=== PATIENT | female | born 2000 | race Caucasian/White ===

== ENCOUNTER 2023-12-05 19:28 | Emergency (ER) | payer OTHER ==
[2023-12-05 19:38] VITALS: BMI 35.6
[2023-12-05] MEDS ORDERED: FAMOTIDINE 20 MG TABLET ONE (20:26)
[2023-12-05] MEDS ORDERED: ONDANSETRON *ODT* 4 MG TABLET ONE (20:26)
[2023-12-05] MEDS: ONDANSETRON *ODT* 4 MG TABLET SL ONE (20:35)
[2023-12-05] MEDS: FAMOTIDINE 10 MG TABLET PO ONE (20:35)
[2023-12-05] MEDS ORDERED: FAMOTIDINE 20 MG/50 ML IVPB 20 MG/50 ML MG IVPB ONE (21:32)
[2023-12-05] MEDS ORDERED: ONDANSETRON 4 MG/2 ML VIAL ONE (21:32)
[2023-12-05] MEDS ORDERED: MAG HYDROX/AL HYDROX/SIMETH 30 ML UNIT-DOSE CUP ONE (21:32)
[2023-12-05] MEDS: FAMOTIDINE 20 MG/50 ML IVPB 20 MG/50 ML MG IVPB ONE (21:53)
[2023-12-05] MEDS: MAG HYDROX/AL HYDROX/SIMETH 30 ML UNIT-DOSE CUP PO ONE (21:53)
[2023-12-05] MEDS: ONDANSETRON 4 MG/2 ML VIAL IVPUSH ONE (21:53)
[2023-12-05 22:03] LABS: BASO % 0.7 % (0-2.0); EOS % 0.2 % (0-4.5); HEMATOCRIT 37.9 % (32.4-45.2); HEMOGLOBIN 11.9 GM/dL (10.7-15.3); LYMPH % 41.4 % (8-40); MCH 21.7 pg (25.7-33.7); MCHC 31.5 g/dl (32.0-36.0); MEAN CELL VOLUME 68.9 fl (80-96); MEAN PLT VOLUME 8.1 fl (7.5-11.1); MONO % 8.5 % (3.8-10.2); NEUT % 49.2 % (42.8-82.8); PLATELET COUNT 256 10^3/uL (134-434); RDW 18.5 % (11.6-15.6); WHITE BLOOD COUNT 4.2 K/mm3 (4.0-10.0)
[2023-12-05 22:24] LABS: ANISOCYTOSIS 0; MACROCYTOSIS 0
[2023-12-05 22:26] LABS: POTASSIUM 3.8 mmol/L (3.5-5.1)
[2023-12-05 22:28] LABS: CALCIUM 9.5 mg/dL (8.5-10.1)
[2023-12-05 22:29] LABS: ALBUMIN 3.8 g/dl (3.4-5.0); BLOOD UREA NITROGEN 7.7 mg/dL (7-18)
[2023-12-05 22:32] LABS: CREATININE 0.7 mg/dL (0.55-1.3)
[2023-12-05 22:34] LABS: BILIRUBIN,TOTAL 1.5 mg/dL (0.2-1); TOT PROT 8.3 g/dl (6.4-8.2)
[2023-12-05] MEDS ORDERED: KETOROLAC TROMETHAMINE 30 MG/1 ML VIAL ONE (23:10)
[2023-12-05] MEDS ORDERED: DEXAMETHASONE SOD PHOSPHATE 10 MG/1 ML VIAL ONE (23:13)
[2023-12-05] MEDS: SODIUM CHLORIDE 0.9% 500 ML INFUS.BAG IV ONE (23:15)
[2023-12-05 23:20] VITALS: BP 132/75; PULSE 89; RESP 18; TEMP 98.2
[2023-12-05] MEDS: KETOROLAC TROMETHAMINE 30 MG/1 ML VIAL IVPUSH ONE (23:23)
[2023-12-05] MEDS: DEXAMETHASONE SOD PHOSPHATE 10 MG/1 ML VIAL IVPUSH ONE (23:23)
== END 2023-12-06 00:33 | disposition home or self-care (01) ==
LOC: JER 19:28
PROC: 3E033GC Introduction of Other Therapeutic Substance into Peripheral Vein, Percutaneous Approach (ICD-10-PCS; principal; 2023-12-05)
PROC: 3E033GC Introduction of Other Therapeutic Substance into Peripheral Vein, Percutaneous Approach (ICD-10-PCS; 2023-12-05)
PROC: 3E033GC Introduction of Other Therapeutic Substance into Peripheral Vein, Percutaneous Approach (ICD-10-PCS; 2023-12-05)
PROC: 3E033GC Introduction of Other Therapeutic Substance into Peripheral Vein, Percutaneous Approach (ICD-10-PCS; 2023-12-05)
PROC: 3E033GC Introduction of Other Therapeutic Substance into Peripheral Vein, Percutaneous Approach (ICD-10-PCS; 2023-12-05)
DX: R09.81 Nasal congestion (principal); R05.9 Cough, unspecified; J02.9 Acute pharyngitis, unspecified; R11.2 Nausea with vomiting, unspecified; R19.7 Diarrhea, unspecified; R10.84 Generalized abdominal pain; M79.10 Myalgia, unspecified site; R07.9 Chest pain, unspecified; R10.13 Epigastric pain; Z20.822 Contact with and (suspected) exposure to COVID-19
CPT/HCPCS: 0241U-QW; 36415; 71046-TC-FY; 74177-TC; 76705-TC; 80053; 83690; 84703; 85025; 87651; 99285-25; J1100; Q9967